=== PATIENT | male | born 1985 | race Caucasian/White ===

== ENCOUNTER 2021-03-08 21:57 | Emergency (ER) | payer SELFPAY ==
--- NOTE | 2021-03-08 23:04 | EDM.PDOC ---
ED HPI GENERAL MEDICAL PROBLEM - General Chief Complaint: Lower Extremity Injury/Pain Stated Complaint: FOOT PAIN Time Seen by Provider: 03/08/21 22:34 Source of Information: Reports: Patient History Limitations: Reports: No Limitations - History of Present Illness INITIAL COMMENTS - FREE TEXT/NARRATIVE: Mr. Howe is a very pleasant 35-year-old gentleman who now presents to the ED concerned that he may have a right great toe infection. He states that he has a history of type 2 diabetes, but that he has been off of his Jardiance for about 4 months, due to lack of health insurance. He checks his blood sugars, and states that they are typically in the 400s. His right great toe was partially amputated, and his right second toe was fully amputated in separate operations. He states that he developed a decubitus ulcer to the stump of his right great toe about 2 months ago. He has been cleaning the toe with hydrogen peroxide, iodine, and an antibiotic ointment. He states that he developed some clear drainage from the plantar aspect of the toe, therefore was seen at the [facility] on 03/01/2021. He states that the wound was cultured. The following day, 03/02/2021, prescriptions for doxycycline 100 mg po BID and metronidazole 500 mg po TID were called in, which he has been taking as prescribed. On Sunday evening, he states that he noticed that his right foot looked swollen. He states that it has been going up and down, that it was normal in appearance this morning, but swollen again after work tonight. He feels pressure in the foot, but no pain. No recent fever. Here in the ED, the patient's initial BP is found to be elevated at 165/95, otherwise, he is hemodynamically stable, afebrile, saturating 100% on room air. He appears to be comfortable, in no acute distress. Other than his right foot/toe issue, the patient denies having a recent fever, chills, sore throat, ear pain, nasal or sinus congestion, cough, dyspnea, chest pain, palpitations, nausea, vomiting, constipation, diarrhea, abdominal pain, urinary symptoms, recent weight gain or weight loss, recent bloody bowel movements or black bowel movements, recent joint aches, headaches, or rashes. The patient does not have a PCP. He believes that he will be getting health insurance in 1 to 2 weeks. Right Foot Pain Score (Numeric/FACES): 5 - Related Data Allergies Allergy/AdvReac Type Severity Reaction Status Date / Time Penicillins Allergy Difficulty Verified 03/27/20 12:12 CDT Breathing Home Meds: Home Meds Doxycycline [Doxycycline Hyclate] 100 mg PO BID 03/08/21 [History] metroNIDAZOLE [Flagyl] 500 mg PO DAILY 03/08/21 [History] Past Medical History Cardiovascular History: Reports: High Cholesterol (untreated) Genitourinary History: Reports: Diabetic Nephropathy Neurological History: Reports: Neuropathy, Diabetic Endocrine/Metabolic History: Reports: Diabetes, Type II (untreated) - Past Surgical History Musculoskeletal Surgical History: Reports: Amputation (Right 1st toe, partial. Right 2nd toe.) Dermatological Surgical History: Reports: Other (See Below) (Cyst excised from back and perineum) Social & Family History - Tobacco Use Tobacco Use Status *Q: Light Tobacco User Tobacco Use Within Last Twelve Months: Smokeless Tobacco (Chews 1/2 can/day) Years of Tobacco use: 22 Packs/Tins Daily: 0.1 Packs/Tins Daily Comment: Down from 1 ppd Tobacco Use Comment: Started smoking at 13 yrs old - Alcohol Use Alcohol Use History: Yes Alcohol Use Frequency: Socially - Recreational Drug Use Recreational Drug Use: No - Living Situation & Occupation Living situation: Reports: Single, Alone Occupation: Employed (Pipeline construction) Review of Systems - Review of Systems Review Of Systems: Comprehensive ROS is negative, except as noted in HPI. ED EXAM, GENERAL - Physical Exam Exam: See Below Exam Limited By: No Limitations General Appearance: Alert, WD/WN, No Apparent Distress Extremities: Other (The right second toe has been amputated. The distal aspect of the right first toe has been amputated. There is granulation tissue and scar tissue to the plantar aspect of the stump of the first to, with a small hole in the center which drains a serosanguineous fluid when expressed. All toes and t) Course - Vital Signs Last Recorded V/S: Last Vital Signs Temp 36.9 C 03/08/21 22:10 Pulse 88 03/08/21 22:10 Resp 18 03/08/21 22:10 BP 165/95 H 03/08/21 22:10 Pulse Ox 100 03/08/21 22:10 - Re-Assessments/Exams Free Text/Narrative Re-Assessment/Exam: 03/08/21 22:58 As above, the patient has diabetes, not currently on any medications, due to cost, with atypical Accu-Chek in the 400s, according the patient. He had a partial amputation of his right great toe in the past, then developed an ulceration to the plantar aspect of the stump of his toe about 2 months ago. He developed clear drainage from the plantar aspect of the stump of his toe, therefore was seen at the [facility] this past Sunday, and was prescribed doxycycline and metronidazole. He states that he has been cleaning his toe with hydrogen peroxide, iodine, and an antibiotic ointment. His foot was doing well until tonight, when he noticed that it was swollen, after work. He does not have any pain, although he feels some pressure in the foot. No recent fever. On examination, there appears to be granulation tissue to the plantar aspect of the stump of his first great toe, and there is a small hole in the toe, with some serosanguineous drainage, but but no pus. There is no erythema to the toe or foot, and, surprisingly, all of the toes are warm, with the first toe being the same temperature as the others. I do not suspect a soft tissue infection, although I cannot rule out underlying osteomyelitis. I explained that in order to make that diagnosis, the patient would need an MRI. I will refer the patient to the clinic so that he can establish a PCP, and they can order an MRI if they feel it is appropriate. They can also refer the patient to Dr. Longo, if they feel that is indicated, as well. At this time, I am recommending that the patient continue with his previously prescribed doxycycline and metronidazole. He needs to keep his foot and toe clean with ordinary soap and water, then apply a protective bandage to prevent abrasion of the plantar aspect of his toe. I recommended that he stop cleaning the toe with hydrogen peroxide and iodine, for a while they kill bacteria, they also kill fibroblasts that will be necessary for the skin to heal. Topical antibiotic ointment does not do anything in this setting, therefore he can discontinue that, as well. With respect to the patient's untreated diabetes, I offered to prescribe him a less expensive medication than Jardiance, such as Metformin, however, the patient states that Metformin causes him GI upset, no matter the dose or frequency. He stated that he will be getting insurance in 1 to 2 weeks, and can then afford to go back on Jardiance. Departure - Departure Time of Disposition: 23:04 Disposition: Home, Self-Care 01 Condition: Good Clinical Impression: Type 2 diabetes mellitus with decubitus ulcer of toe - Discharge Information *PRESCRIPTION DRUG MONITORING PROGRAM REVIEWED*: Not Applicable *COPY OF PRESCRIPTION DRUG MONITORING REPORT IN PATIENT BRANDON: Not Applicable Instructions: Type 2 Diabetes Mellitus, Diagnosis, Adult Referrals: PCP,None [Primary Care Provider] - Shira Solano NP [Nurse Practitioner] - Forms: ED Department Discharge Additional Instructions: You were seen in the emergency room for swelling of your right foot in the setting of a decubitus ulcer to the stump of your first toe. Based on your history and physical examination, there is no soft tissue infection, although an underlying infection of the bone is possible. We recommend that you continue the doxycycline and Flagyl that you were previously prescribed. We recommend that you follow-up with Shira Solano NP, or one of the other providers in the clinic, at the next available appointment. From there, they can arrange for an MRI of your foot, if they feel it appropriate, and/or refer you to an Orthopedic Surgeon. We recommend that you keep your foot and toe clean with ordinary soap and water, followed by applying a protective bandage to prevent abrasion to the toe. We recommend that you stop applying hydrogen peroxide and iodine. These medicines kill bacteria, but they also kill the fibroblasts that form the scar tissue that will allow the toe to heal. Additionally, topical antibiotic ointment in this setting does not do anything, therefore you can discontinue that, as well. An offer to prescribe diabetes medicines was made, but declined. If any other problems, please do not hesitate to return to the ER. Sepsis Event Note (ED) - Evaluation Sepsis Screening Result: No Definite Risk
== END 2021-03-08 23:20 | disposition home or self-care (01) ==
LOC: JD.ED 21:57
DX: L89.899 Pressure ulcer of other site, unspecified stage (principal); E11.21 Type 2 diabetes mellitus with diabetic nephropathy; E11.40 Type 2 diabetes mellitus with diabetic neuropathy, unspecified; Z89.411 Acquired absence of right great toe; Z89.421 Acquired absence of other right toe(s); Z88.0 Allergy status to penicillin; Z72.0 Tobacco use
CPT/HCPCS: 99283; 99284